=== PATIENT | male | born 1965 | race American Indian/Alaskan Native ===

== ENCOUNTER 2017-12-09 07:01 | Outpatient (CLI) | payer MEDICARE, OTHER ==
--- NOTE | 2017-12-09 08:12 | Cat Scan Report ---
CT scan of facial bones: History: Right-sided swelling and pain. Findings: There is soft tissue swelling noted at the right temporal region and probably due to prominence of the muscle in the area. There is asymmetric enlargement of the muscle noted compared to the left side. This may be a normal finding. No lytic or blastic lesions or fracture identified in the facial bones. Nasal septal deviation to the right of the midline with a hypertrophy of left turbinates. The sinuses appears unremarkable. Impression: Findings as detailed above. MRI scan recommended for further evaluation.
== END 2017-12-09 07:02 | disposition home or self-care (01) ==
LOC: CT 07:01
PROVIDERS: ATTEND General Practice
DX: R22.0 Localized swelling, mass and lump, head (principal)
CPT/HCPCS: 70486